=== PATIENT | female | born 1945 | race Caucasian/White ===

== ENCOUNTER 2017-03-11 07:24 | Emergency (ER) | payer MEDICARE ==
[2017-03-11 07:37] VITALS: BP 127/51
--- NOTE | 2017-03-11 08:08 | UC ---
Julian Baker,Shagufta, scribed for Mercedes Rey MD on 03/11/17 at 0753 . Throat Pain/Nasal Mario HPI - HPI Summary HPI Summary: This 72 y/o female presents to [facility] for sore throat and productive cough since . Positive for "ear popping". Negative CP, fever, or fatigue. She denies PMHx of COPD or asthma, but does report seasonal allergies. She initially dismissed symptoms as those of seasonal allergies, but decided to visit Urgent Care when symptoms appear to be more severe than her usual seasonal allergies. Pt lives with her . Pt is heavy everday smoker since 40 years. She does not use any inhaler. Primary care involves provider in [place]. Physical examination findings are shared, and plan of care is discussed with pt. Pt is agreeable at this time. Allergies information involving PCN is reviewed and confirmed. - History of Current Complaint Chief Complaint: UCRespiratory Stated Complaint: SORE THROAT EAR PAIN COUGH Hx Obtained From: Patient Onset/Duration: Still Present Cough: Productive Associated Signs & Symptoms: Positive: Nasal Discharge. Negative: Fever - Allergies/Home Medications Allergies/Adverse Reactions: Allergies Allergy/AdvReac Type Severity Reaction Status Date / Time Penicillins Allergy Rash And Verified 03/11/17 07:36 Itching PMH/Surg Hx/FS Hx/Imm Hx - Additional Past Medical History Additional PMH: Positive seasonal allergies. Gets annual check once yearly, denies chronic problems. Previously Healthy: Yes - Low body weight lifelong - Surgical History Surgical History: Yes Surgery Procedure, Year, and Place: Appendectomy 40 years ago. BILAT CATARACT 2010 [facility] [place]. CSECTION 1994 [facility] [place] - Family History Known Family History: Positive: Unknown - Adopted - Social History Occupation: Retired Lives: With Family Alcohol Use: None Substance Use Type: None Smoking Status (MU): Heavy Every Day Tobacco Smoker Type: Cigarettes Amount Used/How Often: 1/2 PPD Length of Time of Smoking/Using Tobacco: 50 YRS Have You Smoked in the Last Year: Yes Household Exposure Type: Cigarettes Review of Systems Constitutional: Negative Skin: Negative Eyes: Negative ENT: Sore Throat, Other - Ear popping Respiratory: Cough - [facility] sm[facility], with occasional cough, but not daily Cardiovascular: Negative Gastrointestinal: Negative Genitourinary: Negative Motor: Negative Neurovascular: Negative Musculoskeletal: Negative Neurological: Negative Psychological: Negative All Other Systems Reviewed And Are Negative: Yes Physical Exam Triage Information Reviewed: Yes Appearance: Thin - Underweight, looks mildly unwell. Vital Signs: Initial Vital Signs Temp 99.0 F 03/11/17 07:34 Pulse 76 03/11/17 07:34 Resp 16 03/11/17 07:34 BP 127/51 03/11/17 07:34 Pulse Ox 98 03/11/17 07:34 Vital Signs Reviewed: Yes Eye Exam: Normal Neck: Positive: Supple, No Lymphadenopathy Respiratory: Positive: Decreased breath sounds - to both bases. No crackles or wheeze, no prolonged expiration Cardiovascular: Positive: RRR, No Murmur Abdomen Description: Positive: Nontender, No Organomegaly Musculoskeletal Exam: Normal Neurological Exam: Normal Psychological Exam: Normal Skin Exam: Normal Throat Pain/Nasal Course/Dx - Course Course Of Treatment: zitrhromax for suspected sinusitis. - Differential Dx/Diagnosis Differential Diagnosis/HQI/PQRI: Laryngitis, Pharyngitis, Sinusitis Provider Diagnoses: sinusitis, with cough in chronic smoker Discharge - Discharge Plan Condition: Stable Disposition: HOME Prescriptions: Azithromycin 200/5 SUSP(NF) [Zithromax 200 mg/5 ml SUSP(NF)] 12.5 ml PO .NOW, THEN 6 ML #1 btl Additional Instructions: Take the full course of antibiotic for treatment of sinusitis and upper airway infection. Ensure that you increase fluids. The antibiotic can cause stomach upset and some loose stools. You can take it with a snack, but not with dairy products. The documentation as recorded by the Julian braxton Soohyun accurately reflects the service I personally performed and the decisions made by me, Mercedes Rey MD.
== END 2017-03-11 08:14 | disposition home or self-care (01) ==
LOC: UCEAST 07:24
DX: J32.9 Chronic sinusitis, unspecified (principal); Z72.0 Tobacco use; J41.0 Simple chronic bronchitis; J30.2 Other seasonal allergic rhinitis
CPT/HCPCS: 99212; G0463

== ENCOUNTER 2017-08-24 16:22 | Emergency (ER) | payer MEDICARE ==
--- NOTE | 2017-08-24 16:25 | UC ---
Throat Pain/Nasal Mario HPI - HPI Summary HPI Summary: Pt presents with sinus symptoms and dry cough for 2 weeks. She tells me that her symptoms started with a mild dry cough and mild sinus congestion. Her symptoms have since progressed to sinus pain and pressure with a more persistent cough. Denies fever, chills, SOB, chest pain, abdominal pain, N/V/D/C - History of Current Complaint Stated Complaint: SORE THROAT, COUGH Time Seen by Provider: 08/24/17 16:25 Hx Obtained From: Patient Onset/Duration: Gradual Onset Severity: Moderate - Allergies/Home Medications Allergies/Adverse Reactions: Allergies Allergy/AdvReac Type Severity Reaction Status Date / Time Penicillins Allergy Rash And Verified 08/24/17 16:46 Itching PMH/Surg Hx/FS Hx/Imm Hx Previously Healthy: Yes Respiratory History: COPD - Surgical History Surgical History: Yes Surgery Procedure, Year, and Place: Appendectomy 40 years ago. [place] [facility] [place] [facility] [place] - Family History Known Family History: Positive: Unknown - Adopted - Social History Occupation: Retired Lives: Alone Alcohol Use: None Substance Use Type: None Smoking Status (MU): Heavy Every Day Tobacco Smoker Type: Cigarettes Amount Used/How Often: 1/2 PPD Length of Time of Smoking/Using Tobacco: 50 YRS Have You Smoked in the Last Year: Yes Household Exposure Type: Cigarettes Cessation Counseling: Counseled 3+Min - 10 Min Review of Systems Constitutional: Negative Skin: Negative Eyes: Negative ENT: Nasal Discharge, Sinus Congestion, Sinus Pain/Tenderness Respiratory: Cough Cardiovascular: Negative Gastrointestinal: Negative Neurovascular: Negative Neurological: Negative Psychological: Negative All Other Systems Reviewed And Are Negative: Yes Physical Exam Triage Information Reviewed: Yes Appearance: Ill-Appearing, Thin Vital Signs Reviewed: Yes Eyes: Positive: Conjunctiva Clear. Negative: Conjunctiva Inflamed, Discharge ENT: Positive: Hearing grossly normal, Pharynx normal, Nasal congestion, Nasal drainage, TMs normal, Sinus tenderness, Uvula midline. Negative: Pharyngeal erythema, TM bulging, TM dull, TM red, Tonsillar swelling, Tonsillar exudate, Muffled voice, Hoarse voice Neck: Positive: Supple, Nontender, No Lymphadenopathy Respiratory: Positive: Chest non-tender, Lungs clear, No respiratory distress, No accessory muscle use, Decreased breath sounds - Throughout. Negative: Crackles, Rhonchi, Wheezing Cardiovascular: Positive: RRR, No Murmur, Pulses Normal Neurological: Positive: Alert Psychological: Positive: Age Appropriate Behavior Skin: Negative: rashes Throat Pain/Nasal Course/Dx - Course Course Of Treatment: Sinusitis and bronchitis - strongly advised to try and cut back on her smoking as this is likely contributing to her symptoms. - Differential Dx/Diagnosis Differential Diagnosis/HQI/PQRI: Influenza, Laryngitis, Mononucleosis, Otitis Media, Pharyngitis, Sinusitis, Tonsillitis, URI Provider Diagnoses: Sinusitis. Bronchitis Discharge - Discharge Plan Condition: Stable Disposition: HOME Prescriptions: Albuterol HFA INHALER* [Ventolin HFA Inhaler*] 1 - 2 puff INH Q6H PRN #1 mdi PRN Reason: Sob/Wheezing Azithromycin 200/5 SUSP(NF) [Zithromax 200 mg/5 ml SUSP(NF)] 400 mg PO .NOW, THEN 200MG GET #1 btl Patient Education Materials: Sinusitis (ED), Acute Bronchitis (ED) Referrals: Trip SANTA,Jj Leyva [Primary Care Provider] - Additional Instructions: If you develop a fever, SOB, chest pain, new or worsening symptoms - please call your PCP or go to the ED.
[2017-08-24 16:49] VITALS: BP 114/56
== END 2017-08-24 17:15 | disposition home or self-care (01) ==
LOC: UCEAST 16:22
DX: J40 Bronchitis, not specified as acute or chronic (principal); J32.9 Chronic sinusitis, unspecified; J44.9 Chronic obstructive pulmonary disease, unspecified; F17.210 Nicotine dependence, cigarettes, uncomplicated; Z88.0 Allergy status to penicillin
CPT/HCPCS: 99212; G0463

== ENCOUNTER 2023-12-19 16:19 | Observation (INO) ==
[2023-12-19] MEDS: Lactated Ringers 1000 ml BAG 1,000 ML IV ONE (16:55)
[2023-12-19 16:58] LABS: ABS Basophils 0.1 10^3/uL (0.0-0.1); ABS Eosinophils 0.1 10^3/uL (0.0-0.5); ABS Lymphocytes 1.8 10^3/uL (1.0-4.8); ABS Monocytes 0.6 10^3/uL (0.0-0.9); ABS Neutrophils 5.9 10^3/uL (1.5-7.6); Eosinophil % 0.9 %; Hematocrit 39.1 % (35-45); Hemoglobin 12.8 g/dL (11.5-14.3); Lymphocyte % 21.3 %; Mean Corpuscular Hemoglobin 28.1 pg (27-33); Mean Corpuscular Hgb Conc 32.6 g/dL (31-36); Mean Corpuscular Volume 86.2 fL (80-97); Mean Platelet Volume 8.1 fL (7.5-11.2); Platelet Count 307 10^3/uL (150-450); Red Blood Count 4.54 10^6/uL (3.63-4.92); Red Cell Distribution Width 14.1 % (12-17); White Blood Count 8.5 10^3/uL (3.8-11.8)
[2023-12-19 17:16] LABS: INR 0.94 (0.83-1.13)
[2023-12-19 17:46] LABS: Albumin 4.3 g/dL (3.2-5.2); Albumin/Globulin Ratio 1.5 (1-3); Calcium 9.9 mg/dL (8.6-10.3); Creatinine, Serum 1.07 mg/dL (0.51-0.95); Globulin 2.9 g/dL (2-4); Total Bilirubin 0.5 mg/dL (0.2-1.0); Total Protein 7.2 g/dL (6.4-8.9); eGFR CKD-EPI 53.5 (>60)
[2023-12-19] MEDS: Ondansetron 4 mg VIAL 2 MG/ML 2 ml VIAL IV ONE (17:46)
[2023-12-19 18:25] LABS: High Sensitivity Troponin 1 Hr 7 pg/mL (<15)
[2023-12-19] MEDS ORDERED: Ondansetron 4 mg VIAL 2 MG/ML 2 ml VIAL IV PRN (22:01)
[2023-12-19 22:02] LABS: Folate 11.23 ng/mL (5.90-24.80)
[2023-12-19 22:06] LABS: Vitamin D Total 25(OH) 27.4 ng/mL (20-50)
[2023-12-19] MEDS ORDERED: Albuterol HFA INHALER 8 gm MDI INH PRN (22:47)
[2023-12-19] MEDS: Lactated Ringers 1000 ml BAG 1,000 ML IV SCH (23:53)
[2023-12-20] MEDS: Acetaminophen IV 1 GM/100ML 1,000 MG/100 ML BAG IV PRN (03:53)
[2023-12-20 06:32] LABS: ABS Basophils 0.1 10^3/uL (0.0-0.1); ABS Eosinophils 0.1 10^3/uL (0.0-0.5); ABS Lymphocytes 1.4 10^3/uL (1.0-4.8); ABS Monocytes 0.5 10^3/uL (0.0-0.9); ABS Neutrophils 4.7 10^3/uL (1.5-7.6); Eosinophil % 1.7 %; Hematocrit 31.1 % (35-45); Hemoglobin 10.4 g/dL (11.5-14.3); Lymphocyte % 20.2 %; Mean Corpuscular Hemoglobin 28.9 pg (27-33); Mean Corpuscular Hgb Conc 33.5 g/dL (31-36); Mean Corpuscular Volume 86.3 fL (80-97); Mean Platelet Volume 8.2 fL (7.5-11.2); Nucleated Red Blood Cells % 0.1 %/100WBC (0.0-0.8); Platelet Count 239 10^3/uL (150-450); Red Cell Distribution Width 14.3 % (12-17); White Blood Count 6.7 10^3/uL (3.8-11.8)
[2023-12-20 07:25] LABS: Calcium 8.6 mg/dL (8.6-10.3); Creatinine, Serum 0.88 mg/dL (0.51-0.95); Magnesium 1.8 mg/dL (1.9-2.7); Phosphorus 3.3 mg/dL (2.5-5.0); Potassium 4.1 mmol/L (3.5-5.0); eGFR CKD-EPI 67.6 (>60)
[2023-12-20] MEDS: Mometasone/Formoter 100/5 MDI INH SCH (07:59)
[2023-12-20] MEDS: D5LR 1000 ml BAG 1,000 ML IV SCH (10:53)
[2023-12-20] MEDS ORDERED: Midazolam 2 mg/2 ml VIAL 1 mg/ml 2 ml VIAL (2 mg) ONE (15:24)
[2023-12-20] MEDS ORDERED: fentaNYL 100 mcg/2 ml 50 MCG/ML VIAL ONE (15:24)
[2023-12-20] MEDS ORDERED: Propofol 10 MG/ML 20 ML BTL ONE (15:24)
[2023-12-20] MEDS ORDERED: Lidocaine 2% PF 5 ML VIAL ONE (15:24)
[2023-12-20] MEDS ORDERED: Ondansetron 4 mg VIAL 2 MG/ML 2 ml VIAL ONE (15:49)
[2023-12-20 16:50] VITALS: BP 125/68
== END 2023-12-20 18:00 | disposition home or self-care (01) ==
LOC: EDHOLD 16:19 → ED 16:19 → SUATTDRO 20:51 → MED 22:57
PROVIDERS: ADMIT Hospitalist; ATTEND Internal Medicine
PROC: O.GIEGD (2023-12-20 16:05)

== ENCOUNTER 2024-03-25 13:33 | Inpatient (IN) ==
[2024-03-25] MEDS: NS 0.9% 1000 ml BAG 1,000 ML IV ONE (14:00)
[2024-03-25 16:38] LABS: ABS Lymphocytes 0.2 10^3/uL (1.0-4.8); ABS Monocytes 0.4 10^3/uL (0.0-0.9); ABS Neutrophils 15.2 10^3/uL (1.5-7.6); Eosinophil % 0.1 %; Hematocrit 34.7 % (35-45); Mean Corpuscular Hemoglobin 27.6 pg (27-33); Mean Corpuscular Hgb Conc 31.8 g/dL (31-36); Mean Corpuscular Volume 86.6 fL (80-97); Mean Platelet Volume 8.4 fL (7.5-11.2); Platelet Count 226 10^3/uL (150-450); Red Cell Distribution Width 14.3 % (12-17); White Blood Count 15.8 10^3/uL (3.8-11.8)
[2024-03-25 16:42] LABS: Urine Appearance Turbid; Urine Bilirubin Negative (Negative); Urine Blood Trace (Negative); Urine Color Light-Yellow; Urine Glucose Trace (Negative); Urine Ketones Negative (Negative); Urine Nitrite Negative (Negative); Urine Protein 1+ (>=30 mg/dL) (Negative); Urine Specific Gravity 1.015 (1.002-1.030); Urine Urobilinogen Negative (Negative); Urine pH 5.5 (5.0-8.0)
[2024-03-25 17:20] LABS: Urine Bacteria Absent /HPF (Absent); Urine Red Blood Cell Trace(0-2/hpf) /HPF (0-Trace); Urine Squamous Epithelial Cell Present /HPF (Absent); Urine White Blood Cell 3+(>20/hpf) /HPF (0-Trace)
[2024-03-25] MEDS: cefTRIAXone 1 gm/50 mL D5W 1 GM/50 ML BAG IV ONE (17:25)
[2024-03-25 17:55] LABS: Albumin 3.5 g/dL (3.2-5.2); Albumin/Globulin Ratio 1.5 (1-3); C Reactive Protein 2.4 mg/L (<8.01); Calcium 8.7 mg/dL (8.6-10.3); Creatinine, Serum 1.27 mg/dL (0.51-0.95); Globulin 2.4 g/dL (2-4); Magnesium 1.7 mg/dL (1.9-2.7); Phosphorus 3.1 mg/dL (2.5-5.0); Potassium 3.9 mmol/L (3.5-5.0); Total Bilirubin 0.5 mg/dL (0.2-1.0); Total Protein 5.9 g/dL (6.4-8.9); eGFR CKD-EPI 43.3 (>60)
[2024-03-25] MEDS: Lactated Ringers 1000 ml BAG IV.FLUID IV ONE (17:57)
[2024-03-25 18:25] LABS: High Sensitivity Troponin 1 Hr 8 pg/mL (<15)
[2024-03-25] MEDS: NS 0.9% 500 ml BAG 500 ML IV SCH (19:40)
[2024-03-25] MEDS: Acetaminophen IV 1 GM/100ML 500 MG/50 ML BAG IV ONE (20:31)
[2024-03-25] MEDS: Cefepime 2 GM in Dextrose 2 GM/50 ML BAG IV SCH (20:40)
[2024-03-25] MEDS: Nicotine PATCH 7 MG/24 HR PATCH TRANSDERM SCH (20:55)
[2024-03-25] MEDS: Norepinephrine 4 MG/250mL D5W 4,000 MCG/250 ML BAG IV SCH (21:30)
[2024-03-25] MEDS: CMCS:Pantoprazole Packet (NF) 40 MG GRANPKT.DR PO SCH (23:17)
[2024-03-25] MEDS: Enoxaparin 30 MG/0.3 ML SYR SUBCUT SCH (23:17)
[2024-03-25] MEDS ORDERED: Acetaminophen IV 1 GM/100ML 1,000 MG/100 ML BAG IV PRN (23:18)
[2024-03-25] MEDS: fentaNYL 100 mcg/2 ml 50 MCG/ML VIAL IV SLOW PU PRN (23:50)
[2024-03-26] MEDS: Acetaminophen IV 1 GM/100ML 1,000 MG/100 ML BAG IV ONE (00:20)
[2024-03-26 05:14] LABS: ABS Lymphocytes 0.4 10^3/uL (1.0-4.8); ABS Monocytes 0.2 10^3/uL (0.0-0.9); ABS Neutrophils 8.8 10^3/uL (1.5-7.6); Eosinophil % 0.3 %; Hematocrit 28.4 % (35-45); Hemoglobin 9.3 g/dL (11.5-14.3); Lymphocyte % 4.7 %; Mean Corpuscular Hemoglobin 28.2 pg (27-33); Mean Corpuscular Hgb Conc 32.7 g/dL (31-36); Mean Corpuscular Volume 86.4 fL (80-97); Platelet Count 179 10^3/uL (150-450); Red Blood Count 3.28 10^6/uL (3.63-4.92); White Blood Count 9.5 10^3/uL (3.8-11.8)
[2024-03-26 05:55] LABS: Calcium 7.6 mg/dL (8.6-10.3); Creatinine, Serum 1.17 mg/dL (0.51-0.95); Magnesium 1.5 mg/dL (1.9-2.7); Potassium 3.9 mmol/L (3.5-5.0); eGFR CKD-EPI 47.8 (>60)
[2024-03-26] MEDS: Tiotropium Brom/Olodaterol MDI (ACUTE) INH SCH (07:51)
[2024-03-26] MEDS: Magnesium Sulfate 2 gm BAG 2 GM/50 ML BAG IVPB ONE (07:54)
[2024-03-26] MEDS ORDERED: SPIRIVA Respimat (tiotropium) 2.5 mcg/inh Inhaler INH SCH (09:00)
[2024-03-26] MEDS ORDERED: cefTRIAXone 1 gm/50 mL D5W 1 GM/50 ML BAG IV SCH (17:00)
[2024-03-26] MEDS: cefTRIAXone 1 gm/50 mL D5W 1 GM/50 ML BAG IV SCH (21:45)
[2024-03-27 04:48] LABS: ABS Eosinophils 0.2 10^3/uL (0.0-0.5); ABS Lymphocytes 0.6 10^3/uL (1.0-4.8); ABS Monocytes 0.4 10^3/uL (0.0-0.9); ABS Neutrophils 4.9 10^3/uL (1.5-7.6); Eosinophil % 3.4 %; Hematocrit 28.5 % (35-45); Hemoglobin 9.4 g/dL (11.5-14.3); Lymphocyte % 9.6 %; Mean Corpuscular Hemoglobin 28.4 pg (27-33); Mean Corpuscular Hgb Conc 33.1 g/dL (31-36); Mean Corpuscular Volume 85.9 fL (80-97); Mean Platelet Volume 8.2 fL (7.5-11.2); Platelet Count 181 10^3/uL (150-450); Red Blood Count 3.31 10^6/uL (3.63-4.92); Red Cell Distribution Width 14.5 % (12-17); White Blood Count 6.2 10^3/uL (3.8-11.8)
[2024-03-27 05:29] LABS: Calcium 8.4 mg/dL (8.6-10.3); Creatinine, Serum 1.13 mg/dL (0.51-0.95); Magnesium 2.2 mg/dL (1.9-2.7); Potassium 3.9 mmol/L (3.5-5.0); eGFR CKD-EPI 49.8 (>60)
[2024-03-27] MEDS ORDERED: Insulin GLARGINE 100 un/ml 10 ml VIAL SUBCUT SCH (12:00)
[2024-03-27 17:18] VITALS: BP 122/78
== END 2024-03-27 18:20 | disposition home or self-care (01) | DRG 871 ==
LOC: ED 13:33 → SUATTDRO 18:39 → EDHOLD 18:39 → ICU 22:22 → MED 22:36
PROVIDERS: ADMIT Student in an Organized Health Care Education/Training Program; ATTEND Student in an Organized Health Care Education/Training Program

== ENCOUNTER 2024-07-07 09:06 | Observation (INO) ==
[2024-07-07 10:15] LABS: INR 0.98 (0.85-1.14)
[2024-07-07] MEDS: Ondansetron 4 mg VIAL 2 MG/ML 2 ml VIAL IV ONE (11:06)
[2024-07-07] MEDS: Lactated Ringers 1000 ml BAG 1,000 ML IV ONE ×2 (11:06→14:59)
[2024-07-07 11:14] LABS: Hematocrit 33.4 % (35-45); Hemoglobin 10.9 g/dL (11.5-14.3); Mean Corpuscular Hemoglobin 27.7 pg (27-33); Mean Corpuscular Hgb Conc 32.6 g/dL (31-36); Mean Corpuscular Volume 84.8 fL (80-97); Red Blood Count 3.93 10^6/uL (3.63-4.92); Red Cell Distribution Width 14.3 % (12-17); White Blood Count 10.7 10^3/uL (3.8-11.8)
[2024-07-07 11:17] LABS: Urine Appearance Turbid; Urine Bilirubin Negative (Negative); Urine Blood Trace (Negative); Urine Color Dark-Yellow; Urine Glucose Trace (Negative); Urine Ketones Negative (Negative); Urine Nitrite 1+ (Negative); Urine Protein 1+ (>=30 mg/dL) (Negative); Urine Specific Gravity 1.022 (1.002-1.030); Urine Urobilinogen Negative (Negative)
[2024-07-07 11:23] LABS: Urine Bacteria 1+ /HPF (Absent); Urine Red Blood Cell 1+(3-5/hpf) /HPF (0-Trace); Urine Squamous Epithelial Cell Present /HPF (Absent); Urine Transitional Epithelial Present /HPF (Absent); Urine White Blood Cell 3+(>20/hpf) /HPF (0-Trace)
[2024-07-07 11:59] LABS: Albumin 3.7 g/dL (3.2-5.2); Albumin/Globulin Ratio 1.5 (1-3); Calcium 8.8 mg/dL (8.6-10.3); Creatinine, Serum 1.27 mg/dL (0.51-0.95); Globulin 2.4 g/dL (2-4); Potassium 4.1 mmol/L (3.5-5.0); Total Bilirubin 0.6 mg/dL (0.2-1.0); Total Protein 6.1 g/dL (6.4-8.9); eGFR CKD-EPI 43.3 (>60)
[2024-07-07 12:08] LABS: ABS Lymphocytes 0.5 10^3/uL (1.0-4.8); ABS Monocytes 0.4 10^3/uL (0.0-0.9); ABS Neutrophils 9.6 10^3/uL (1.5-7.6); Eosinophil % 0.5 %; Lymphocyte % 5.1 %; Platelet Count Platelets clumped. 10^3/uL (150-450)
[2024-07-07] MEDS: Iodixanol 320 (CONTRAST) 100 ML SDV IV ONE (12:25)
[2024-07-07] MEDS: cefTRIAXone 1 gm/50 mL D5W 1 GM/50 ML BAG IV ONE (12:30)
[2024-07-07] MEDS ORDERED: Ondansetron 4 mg VIAL 2 MG/ML 2 ml VIAL IV PRN (15:52)
[2024-07-07 16:17] LABS: Magnesium 1.7 mg/dL (1.9-2.7)
[2024-07-07] MEDS ORDERED: Acetaminophen IV 1 GM/100ML 1,000 MG/100 ML BAG IV PRN (16:26)
[2024-07-07 20:10] LABS: Mean Platelet Volume 7.9 fL (7.5-11.2); Platelet Count 206 10^3/uL (150-450)
[2024-07-07 20:43] LABS: Folate 4.48 ng/mL (5.90-24.80)
[2024-07-07] MEDS: Lactated Ringers 1000 ml BAG 1,000 ML IV SCH (21:40)
[2024-07-07] MEDS: Heparin 5000 UNITS/ML 1 mL VIAL SUBCUT SCH (21:41)
[2024-07-08 06:29] LABS: Calcium 8.3 mg/dL (8.6-10.3); Creatinine, Serum 1.08 mg/dL (0.51-0.95); Magnesium 1.5 mg/dL (1.9-2.7); Potassium 3.9 mmol/L (3.5-5.0); eGFR CKD-EPI 52.6 (>60)
[2024-07-08 06:31] LABS: ABS Eosinophils 0.1 10^3/uL (0.0-0.5); ABS Lymphocytes 0.4 10^3/uL (1.0-4.8); ABS Monocytes 0.3 10^3/uL (0.0-0.9); ABS Neutrophils 3.9 10^3/uL (1.5-7.6); Eosinophil % 2.8 %; Hematocrit 29.1 % (35-45); Hemoglobin 9.5 g/dL (11.5-14.3); Lymphocyte % 7.5 %; Mean Corpuscular Hemoglobin 27.7 pg (27-33); Mean Corpuscular Hgb Conc 32.7 g/dL (31-36); Mean Corpuscular Volume 84.8 fL (80-97); Mean Platelet Volume 8.6 fL (7.5-11.2); Platelet Count 179 10^3/uL (150-450); Red Blood Count 3.43 10^6/uL (3.63-4.92); White Blood Count 4.7 10^3/uL (3.8-11.8)
[2024-07-08] MEDS: Magnesium Sulf 4 GM/100 ML IV 4,000 MG/100 ML BAG IVPB ONE (08:18)
[2024-07-08] MEDS: SPIRIVA Respimat (tiotropium) 2.5 mcg/inh Inhaler INH SCH (14:02)
[2024-07-08] MEDS: cefTRIAXone 1 gm/50 mL D5W 1 GM/50 ML BAG IV SCH (14:02)
[2024-07-08 14:18] VITALS: BP 101/56
== END 2024-07-08 15:21 | disposition home or self-care (01) ==
LOC: ED 09:06 → EDHOLD 09:06 → SSU 18:20
PROVIDERS: ADMIT Internal Medicine; ATTEND Internal Medicine